=== PATIENT | female | born 1990 | race Caucasian/White ===

== ENCOUNTER 2020-07-17 09:42 | Day surgery (SDC) | payer OTHER, SELFPAY ==
[2020-07-17] VITALS (7 sets, daily range): BP systolic 107–140; BP diastolic 64–74; PULSE 65–86; RESP 18–20; TEMP 36.1; O2SAT 96–100; BMI 33.6
--- NOTE | ~2020-07-17 | FL_ITS ---
EXAMINATION: FL LUMBAR PUNCTURE CLINICAL INFORMATION: Pseudotumor cerebri. COMPARISON: None TECHNIQUE: Following explaining the fluoroscopy-guided lumbar puncture procedure, benefits and risks, a written consent was obtained. The patient was placed prone on the fluoroscopy table and the low back area was cleaned and draped in the usual sterile manner. 1% lidocaine was injected overlying the L3-L4 disc level. A 22-gauge short spinal needle was then advanced from the left paramidline approach intrathecally at the L3-L4 disc level. After observing fluid return, the patient was quickly placed in left lateral decubitus view and opening CSF pressure was obtained. Subsequently, clear CSF fluid was collected in 4 test tubes. The stylet was reintroduced and the needle withdrawn. Complete hemostasis was achieved at the puncture site. The patient tolerated the procedure extremely well. FINDINGS: On a single PA image of the lumbar spine, there is normal lumbar alignment. The vertebral heights and disc alignment are normal. No fracture or lytic process seen. The opening CSF pressure measured 26 cm of water. Approximately 7 mL of clear fluid was collected in 4 test tubes. FLUOROSCOPY TIME: 0.7 minutes DOSE AREA PRODUCT: 9.683 uGy-m2 (microgray-meter squared) FL/FL guided lumbar puncture LP IMPRESSION: Successful fluoroscopy-guided lumbar puncture performed with opening CSF pressure measuring 26 cm of water. Clear CSF fluid was collected in 4 test tubes and sent to the lab as per physician's request.
[2020-07-17 10:18] LABS: UPreg QC Valid YES; Urine Pregnancy NEGATIVE (NEGATIVE)
[2020-07-17 10:24] LABS: MANUAL DIFF FLAG NO
[2020-07-17 10:35] LABS: Basophils Percent Auto 0.4 % (0-2); Eosinophils Absolute Auto 0.1 X10*3/uL (0.0-0.4); Eosinophils Percent Auto 1.9 % (0-4); Hematocrit 37.1 % (37-47); Hemoglobin 12.1 g/dl (12.0-16.0); INTERNATIONAL NORM RATIO 1.1 (0.9-1.1); Imm Gran Abs Auto 0.01 X10*3/uL (0.00-0.03); Imm Gran Pct Auto 0.1 % (0.0-0.4); Lymphocytes Absolute Auto 2.1 X10*3/uL (1.2-4.9); Lymphocytes Percent Auto 28.5 % (20-40); Mean Corpuscular HGB Conc 32.6 g/dl (31.0-35.0); Mean Corpuscular Hemoglobin 27.4 pg (27.0-33.0); Mean Corpuscular Volume 84.1 fL (80-98); Mean Platelet Volume 11.2 fL (9.4-12.3); Monocytes Absolute Auto 0.5 X10*3/uL (0.1-1.2); Monocytes Percent Auto 6.5 % (2-11); Neutrophils Absolute Auto 4.5 X10*3/uL (2.0-8.3); Neutrophils Percent Auto 62.6 % (45-73); Platelet Count 294 X10*3/uL (160-400); Prothrombin Time 13.2 SEC (10.8-13.0); Red Blood Count 4.41 X10*6/uL (4.20-5.50); Red Cell Distribution Width 12.7 % (11.0-16.0); White Blood Count 7.2 X10*3/uL (4.8-10.8)
[2020-07-17 10:37] LABS: Partial Thromboplastin Time 35.5 SEC (24.1-38.0)
[2020-07-17 13:27] LABS: Glucose CSF 63 mg/dL; Total Protein CSF 17.7 mg/dL (15-45)
[2020-07-17 13:34] LABS: CSF Appearance Clear, Colorless; CSF Tube # 2
[2020-07-17 13:50] LABS: Lymphocytes CSF 100 %
[2020-07-17 13:51] LABS: Appearance CSF CLEAR; CSF Tube # 4; Color CSF COLORLESS; Red Blood Cell CSF 2 MM*3; White Blood Cell CSF 2 MM*3
== END 2020-07-17 15:31 | disposition home or self-care (01) ==
PROVIDERS: Psychiatry & Neurology Neurology; Radiology Diagnostic Radiology; Visit Provider Radiology Diagnostic Radiology
PROC: 009U3ZZ Drainage of Spinal Canal, Percutaneous Approach (ICD-10-PCS; CPT 62270; principal; 2020-07-17 11:00)
DX: G93.2 Benign intracranial hypertension (principal); H47.10 Unspecified papilledema; R51.9 Headache, unspecified
CPT/HCPCS: 36415; 62328; 81025; 82945; 84157; 85025; 85610; 85730; 87015; 87070; 87205; 89051